=== PATIENT | female | born 1950 | race Caucasian/White ===

== ENCOUNTER 2025-05-04 14:57 | Emergency (ER) | payer MEDICARE ==
[~2025-05-04] VITALS: Ht 175.3 cm; Wt 77.1 kg
[2025-05-04] MEDS ORDERED: PSYL0.4C2 PO (15:21)
[2025-05-04] MEDS ORDERED: FERR-56 PO (15:21)
[2025-05-04] MEDS ORDERED: ESCI10TA PO (15:21)
[2025-05-04] MEDS ORDERED: PANT40TA49 PO (15:21)
[2025-05-04] MEDS ORDERED: APIX2.5T PO (15:21)
[2025-05-04] MEDS ORDERED: ROSU40TA PO (15:21)
[2025-05-04] MEDS ORDERED: AMIO200T5 PO (15:21)
[2025-05-04] MEDS ORDERED: BACL5TAB PO (15:21)
[2025-05-04] MEDS ORDERED: LOSA25TA27 PO (15:21)
[2025-05-04] MEDS ORDERED: ATOR80TA PO (15:21)
[2025-05-04] MEDS ORDERED: LINA290C PO (15:21)
[2025-05-04] MEDS ORDERED: ACET-2605 PO (15:21)
[2025-05-04] MEDS ORDERED: POLY17PO4 PO (15:21)
[2025-05-04 16:06] LABS: PLATELET COUNT (AUTO) 270 K/uL (179-408); RED BLOOD CELL COUNT(AUTO) 4.75 MIL/uL (3.63-4.92); RED CELL DISTRIBUTION WIDTH 15.6 % (12.3-17.7); WHITE BLOOD COUNT (AUTO) 6.3 K/uL (3.8-11.8)
[2025-05-04 16:11] LABS: CREATININE 1.8 mg/dL (0.6-1.3); SODIUM SERUM 139 mmol/L (136-145); UREA NITROGEN, BLOOD 32 mg/dL (7-18)
[2025-05-04 16:17] LABS: ASPARTATE AMINOTRANSFERASE 77 U/L (15-37); TOTAL PROTEIN, SERUM 7.9 g/dL (6.4-8.2)
[2025-05-04 16:22] LABS: *OCCULT BLOOD STOOL NEGATIVE (NEGATIVE)
[2025-05-04 17:01] VITALS: BP 135/92
[2025-05-04 17:24] VITALS: BP 135/92; TEMP 98.3; O2SAT 96
== END 2025-05-04 17:24 | disposition home or self-care (01) ==
LOC: ER 14:57
DX: F32.A Depression, unspecified (principal); E78.5 Hyperlipidemia, unspecified; I44.7 Left bundle-branch block, unspecified; I48.91 Unspecified atrial fibrillation; Z79.01 Long term (current) use of anticoagulants; Z79.899 Other long term (current) drug therapy; Z86.73 Personal history of transient ischemic attack (TIA), and cerebral infarction without residual deficits; Z87.11 Personal history of peptic ulcer disease
CPT/HCPCS: 36415; 83605; 85025; 85730; 86850; 86900; 86901; A4606; A4663